=== PATIENT | female | born 1965 | race Two or more races ===

== ENCOUNTER 2020-08-26 16:03 | Emergency (ER) | payer OTHER ==
[~2020-08-26] VITALS: Ht 149.9 cm; Wt 67.1 kg
--- NOTE | 2020-08-26 16:32 | NUR ---
ED Nurse Note: Pt ambulated to ed c/o Left eye pain s/p lifting pt from work. Eye appears red.
[2020-08-26 16:33] VITALS: BP 123/72
[2020-08-26] MEDS ORDERED: Tetracaine 0.5% Opth 4ml Soln RIGHT EYE ONE (16:45)
[2020-08-26] MEDS ORDERED: Fluorescein Strips LEFT EYE ONE (16:45)
--- NOTE | 2020-08-26 16:50 | NUR ---
ED Nurse Note: Pt taken to CT
--- NOTE | 2020-08-26 17:05 | NUR ---
ED Nurse Note: Pt returned from CT
--- NOTE | 2020-08-26 17:09 | Diagnostic Imaging Report ---
EXAM: CT Maxillofacial Without Intravenous Contrast CLINICAL HISTORY: PAIN TECHNIQUE: Axial computed tomography images of the face without intravenous contrast. CTDI is 15.3 mGy and DLP is 346.4 mGy-cm. One or more of the following dose reduction techniques were used: automated exposure control, adjustment of the mA and/or kV according to patient size, use of iterative reconstruction technique. Coronal reformatted images were created and reviewed. Axial reformatted images were created and reviewed. COMPARISON: No relevant prior studies available. FINDINGS: Bones/joints: No acute osseous abnormality. Soft tissues: Small frontal scalp hematoma. Orbits: Unremarkable. Sinuses: Unremarkable. No air-fluid levels. Other findings: Otherwise no acute traumatic injury. IMPRESSION: 1. Small frontal scalp hematoma. 2. Otherwise no acute traumatic injury.
--- NOTE | 2020-08-26 17:29 | Emergency Room Report ---
History of Present Illness General Chief Complaint: Eye Problems Source: Patient Present Illness HPI 55-year-old female with no significant past medical history here complaining of 2 weeks of left eye pain and pressure after lifting a patient at work. Denies any fall or injury to the eye or head. Reports that she was lifting a heavy patient and she pressure behind her left eye. Denies any blurry vision, ph otophobia, pruritus. Yellow discharge noted left eye. Denies chemical exposure. Denies vertigo, dizziness, head trauma. Has not taken medication for symptom relief. Allergies: Coded Allergies: No Known Allergies (Unverified , 08/26/20) COVID-19 Screening Contact w/high risk pt: No Experienced COVID-19 symptoms?: No COVID-19 Testing performed HOG TENDER: No Patient History Past Medical History: see triage record Past Surgical History: none Pertinent Family History: none Now: No Immunizations: UTD Reviewed Nursing Documentation: PMH: Agreed; PSxH: Agreed Review of Systems All Other Systems: negative except mentioned in HPI Physical Exam Vital Signs Date Time Temp Pulse Resp B/P (MAP) Pulse Ox O2 Delivery O2 Flow Rate FiO2 08/26/20 16:08 98.4 66 18 123/72 (89) 95 Room Air Sp02 EP Interpretation: reviewed, normal General Appearance: no apparent distress, alert, GCS 15, non-toxic Head: normocephalic, atraumatic Eyes: bilateral eye normal inspection, bilateral eye PERRL ENT: hearing grossly normal, normal pharynx, no angioedema, normal voice Neck: full range of motion, supple/symm/no masses Respiratory: chest non-tender, lungs clear, normal breath sounds, no rhonchi, speaking full sentences Cardiovascular #1: regular rate, rhythm, no edema, no murmur Gastrointestinal: normal bowel sounds, non tender, soft, non-distended, no guarding, no rebound Rectal: deferred Genitourinary: no CVA tenderness Musculoskeletal: back normal Neurologic: alert, motor strength/tone normal, oriented x3, sensory intact, responsive, speech normal Psychiatric: judgement/insight normal, memory normal, mood/affect normal, no suicidal/homicidal ideation Skin: no rash Lymphatic: no adenopathy Medical Decision Making PA Attestation ALL Diagnosis and treatment plan reviewed and discussed with my supervising physician Dr. Cotton Diagnostic Impression: Primary Impression: Periorbital cellulitis Additional Impression: Scalp hematoma ER Course 55-year-old female with no significant past medical history here complaining of 2 weeks of left eye pain and pressure after lifting a patient at work. Denies any fall or injury to the eye or head. Reports that she was lifting a heavy patient and she pressure behind her left eye. Denies any blurry vision, photophobia, pruritus. Yellow discharge noted left eye. Denies chemical exposure. Denies vertigo, dizziness, head trauma. Has not taken medication for symptom relief. Ddx considered but are not limited to: bacterial conjunctivitis, allergic conjunctivitis, viral conjunctivitis, periorbital cellulitis, global trauma Vital signs: are WNL, pt. is afebrile H&PE are most consistent with: Possible periorbital cellulitis, scalp hematoma incidental finding ORDERS: Facial CT noncontrast, Augmentin, Motrin ED INTERVENTIONS: Wood lamp was used, no corneal abrasion noted DISCHARGE: At this time pt. is stable for d/c to home. Will provide printed patient care instructions, and any necessary prescriptions. Care plan and follow up instructions have been discussed with the patient prior to discharge. Patient take medication as directed, follow-up primary care provider and propulsion engineer and return to the emergency room if worsening symptoms CT/MRI/US Diagnostic Results CT/MRI/US Diagnostic Results : Imaging Test Ordered: CT facial no contrast Impression CLINICAL HISTORY: PAIN TECHNIQUE: Axial computed tomography images of the face without intravenous contrast. CTDI is 15.3 mGy and DLP is 346.4 mGy-cm. One or more of the following dose reduction techniques were used: automated exposure control, adjustment of the mA and/or kV according to patient size, use of iterative reconstruction technique. Coronal reformatted images were created and reviewed. Axial reformatted images were created and reviewed. COMPARISON: No relevant prior studies available. FINDINGS: Bones/joints: No acute osseous abnormality. Soft tissues: Small frontal scalp hematoma. Orbits: Unremarkable. Sinuses: Unremarkable. No air-fluid levels. Other findings: Otherwise no acute traumatic injury. IMPRESSION: 1. Small frontal scalp hematoma. 2. Otherwise no acute traumatic injury. Last Vital Signs Date Time Temp Pulse Resp B/P (MAP) Pulse Ox O2 Delivery O2 Flow Rate FiO2 08/26/20 16:33 98.4 76 18 123/72 95 Room Air Disposition: HOME, SELF-CARE Condition: Stable Scripts Ibuprofen* (MOTRIN*) 600 Mg Tablet 600 MG ORAL Q6H PRN for For Pain, #30 TAB 0 Refills Prov: Clotilde Cintron 08/26/20 Amoxicillin/Potassium Clav 875-125* (AUGMENTIN 875-125 TABLET*) 1 Each Tablet 1 TAB ORAL TWICE A DAY for 7 Days, #14 TAB Prov: Clotilde Cintron 08/26/20 Patient Instructions: Cellulitis, [id number] Additional Instructions: Take medication as directed, follow-up with primary care provider, follow-up with propulsion engineer, if worsening symptoms return to emergency Clotilde Cintron Aug 26, 2020 17:29
[2020-08-26] MEDS ORDERED: AUGMENTIN 875-1 EAC1 ORAL (17:41)
[2020-08-26] MEDS ORDERED: IBUPROFEN600 M1 ORAL (17:41)
--- NOTE | 2020-08-26 17:43 | NUR ---
ER DISCHARGE NOTE: Patient is cleared to be discharged per ERMD, pt is aox4, on room air, with stable vital signs. pt was given dc and prescription instructions, pt was able to verbalize understanding, pt id band removed. pt is able to ambulate with steady gait. pt took all belongings.
[2020-08-26 17:44] VITALS: BP 127/72
== END 2020-08-26 17:44 | disposition home or self-care (01) ==
LOC: EMR 17:01
DX: L03.213 Periorbital cellulitis (principal); S00.03XA Contusion of scalp, initial encounter; X50.9XXA Other and unspecified overexertion or strenuous movements or postures, initial encounter; Y92.9 Unspecified place or not applicable
CPT/HCPCS: 70486; 99284

== ENCOUNTER 2020-09-02 12:33 | Emergency (ER) | payer OTHER ==
[~2020-09-02] VITALS: Ht 152.4 cm; Wt 71.7 kg
[~2020-09-02 12:33] MED LIST: AUGMENTIN 875-1 EAC1 ORAL; IBUPROFEN600 M1 ORAL
--- NOTE | 2020-09-02 12:43 | NUR ---
ED Nurse Note: Pt ambulated to ED c/o "popped eye vessel" from lifting heaving things at work. pt was seen at [facility] for same thing 2 weeks ago
[2020-09-02 12:44] VITALS: BP 97/51
[2020-09-02] MEDS ORDERED: Tetracaine 0.5% Opth 4ml Soln ONE (13:00)
[2020-09-02] MEDS ORDERED: Tetracaine 0.5% Opth 4ml Soln LEFT EYE ONE (13:00)
[2020-09-02] MEDS ORDERED: timoloL maleate 0.5% Op Soln 2.5ml LEFT EYE ONE (13:30)
[2020-09-02 13:53] VITALS: BP 110/55
--- NOTE | 2020-09-02 14:15 | Emergency Room Report ---
History of Present Illness General Chief Complaint: Eye Problems Source: Patient Present Illness HPI 55-year-old female here with left eye pain and pressure and swelling and redness. Patient was here several days ago for the same complaint. She had a CT of her head performed that was unremarkable and was given antibiotics for left eye cellulitis. She said that she went home and took the full course of antibiotics and had no improvement. She followed up with her primary care physician and said that she was diagnosed with conjunctivitis and was given gentamicin eyedrops which she has been using as directed for the past 3 days without any relief. She says that despite this the left eye pain and swelling has worsened. She says that she feels as though her vision in her left eye is worse as well and she is now developing a left-sided headache. No fevers, chills, pain on extraocular movement, chest pain, palpitation, shortness of breath. 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 Patient History Last Menstrual Period: na Nursing Documentation-[facility] Past Medical History: No History, Except For Review of Systems All Other Systems: negative except mentioned in HPI Physical Exam Vital Signs Date Time Temp Pulse Resp B/P (MAP) Pulse Ox O2 Delivery O2 Flow Rate FiO2 09/02/20 12:38 98.2 66 17 97/51 (66) 98 Room Air Sp02 EP Interpretation: reviewed, normal General Appearance: no apparent distress, alert, GCS 15, non-toxic Head: normocephalic, atraumatic Eyes: bilateral eye normal inspection, bilateral eye PERRL, bilateral eye other - Conjunctival injection diffusely the left eye. Left globe is hard to the touch compared to the right globe. Intraocular pressure measured with Andrew-Pen was 62 mmHg left eye, 20 mmHg right eye ENT: hearing grossly normal, normal pharynx, no angioedema, normal voice Neck: full range of motion, supple/symm/no masses Respiratory: chest non-tender, lungs clear, normal breath sounds, speaking full sentences Cardiovascular #1: regular rate, rhythm, no edema Cardiovascular #2: 2+ carotid (R), 2+ carotid (L), 2+ radial (R), 2+ radial (L), 2+ dorsalis pedis (R), 2+ dorsalis pedis (L) Gastrointestinal: normal bowel sounds, non tender, soft, non-distended, no guarding, no rebound Rectal: deferred Genitourinary: normal inspection, no CVA tenderness Musculoskeletal: back normal, normal range of motion, gait/station normal, non- tender Neurologic: alert, motor strength/tone normal, oriented x3, sensory intact, responsive, speech normal Psychiatric: judgement/insight normal, memory normal, mood/affect normal, no suicidal/homicidal ideation Lymphatic: no adenopathy Medical Decision Making Diagnostic Impression: Primary Impression: Acute glaucoma ER Course Total critical care time: Approximately 25 minutes Due to a high probability of clinically significant, life threatening deterioration, the patient required the highest level of preparedness to intervene emergently and I personally spent this critical care time directly and personally managing the patient. This critical care time included obtaining a history, examining the patient, pulse oximetry, ordering and reviewing studies, ordering treatments, evaluating response to treatment and updating management plan as needed, frequent reassessment and discussion with other providers as we ll as arranging for ultimate disposition. This critical to care time was performed to assess and manage the high probability of life-threatening deterioration that could result in multiorgan failure. This critical care time is separate from the separately billable procedures and treating other patients. 55-year-old female here with over 1 week of pain in the left eye. Here in the emergency department patient had obvious conjunctival injection of the left eye, in the left eye was hard to the touch compared to the right eye. Measure of the intraocular pressure showed a highly elevated intraocular pressure of the left eye of 62 mmHg, compared to 20 mmHg in the right eye. Visual acuity was measured and was 20/40 for both eyes. Patient was given 1 drop of timolol ocular solution in the left eye. I discussed this case with digital sales representative Dr. Galloway. He said to give the patient 1 dose of Diamox and to discharge her for immediate follow-up in his ophthalmology clinic today. Face she was faxed over to his office. Patient was given strict instructions to go across the street to the ophthalmology clinic. She expressed understanding and was discharged. Last Vital Signs Date Time Temp Pulse Resp B/P (MAP) Pulse Ox O2 Delivery O2 Flow Rate FiO2 09/02/20 13:53 98.2 72 17 110/55 98 Room Air Disposition: HOME, SELF-CARE Condition: Stable Referrals: [facility] (PCP) Dax Galloway M.D., MD Patient Instructions: Glaucoma Additional Instructions: Call the ophthalmology office and go to that office appointment today. Yogesh Cotton M.D. Sep 02, 2020 14:15
== END 2020-09-02 13:50 | disposition home or self-care (01) ==
LOC: EMR 13:45
DX: H40.9 Unspecified glaucoma (principal)
CPT/HCPCS: 99283